=== PATIENT | male | born 1945 | race Caucasian/White ===

== ENCOUNTER 2018-12-27 08:57 | Day surgery (SDC) | payer OTHER ==
[2018-12-26 12:53] VITALS: BMI 30.5
[2018-12-27 10:29] VITALS: TEMP 98.5
[2018-12-27 11:38] VITALS: BP 118/74; PULSE 75
== END 2018-12-27 11:30 | disposition home or self-care (01) ==
LOC: JASU-ENDO 08:57
PROVIDERS: ATTEND Internal Medicine Gastroenterology
PROC: 0D5M8ZZ Destruction of Descending Colon, Via Natural or Artificial Opening Endoscopic (ICD-10-PCS; 2018-12-27)
PROC: 0D5H8ZZ Destruction of Cecum, Via Natural or Artificial Opening Endoscopic (ICD-10-PCS; principal; 2018-12-27 09:45)
DX: Z12.11 Encounter for screening for malignant neoplasm of colon (principal); R19.5 Other fecal abnormalities; K55.9 Vascular disorder of intestine, unspecified